=== PATIENT | male | born 1955 | race Caucasian/White ===

== ENCOUNTER 2023-12-27 18:17 | Inpatient (IN) | payer OTHER, SELFPAY ==
[2023-12-27 08:53] VITALS: BP 182/108
--- NOTE | 2023-12-27 09:56 | ED.GENMED ---
History of Present Illness
General
Chief Complaint: Skin Problem
Source: patient and family
Exam Limitations: none
Time Seen by Provider: 12/27/23 09:28
Nursing documentation reviewed up to this point in time: agreed with
Travel History
Have you had any contact with someone who has COVID-19?: No
Do you have any symptoms of coronavirus? Fever > 100 degrees, chills, cough, shortness of breath, sore throat, loss of taste or smell, muscle aches, or headache?: No
History of Present Illness
History of Present Illness:
68-year-old male past medical history of vascular disease and eczema presenting to the emergency department today with concerns of redness swelling and warmth of the right lower EXTR worsening over the past 5 days or so. Has had blisters that have
drained clear yellow fluid. Sand Screener Operator placed him on Levaquin a few days ago has been taking this took 3 total doses without any improvement. Claims to have had a fever yesterday. Denies chest pain shortness of breath history of blood clots.
Patient does take medication for ectopic dermatitis called Dupixent
Review of Systems
Review of Systems
Allergies reviewed?: Yes
All Other Systems: ROS reviewed and negative except as documented in HPI and ROS
Phy Exam
Physical Exam
Physical Exam:
GENERAL: Alert , in no apparent distress
EYE: pupils equal and reactive
NECK: Supple, no significant adenopathy.
ENT: o/p clr, mmm.
CARDIAC: Regular rate and rhythm .
LUNGS: Clear breath sounds bilaterally, no acute respiratory distress, no wheezes/rales/rhonchi
ABDOMEN: Soft, without focal tenderness, no r/g, no cvat
NEUROLOGICAL: Alert and oriented, no focal neuro deficits
SKIN: Significant redness swelling warmth to the right lower extremity from the hip all the way down to the foot patchy redness to the thigh diffuse deep redness throughout the extremity from the knee to the ankle with ruptured blisters no active
drainage. Mild tenderness palpation throughout the area. Normal distal pulses warm and dry, skin intact.
MUSCULOSKELETAL: No edema, well perfused.
PSYCH: Normal and appropriate interaction.
Course
Orders/Labs/Results
Orders:
Orders
12/27/23 09:58
Venous Doppler Lwr Ext Rt [US Periph Venous LOWER Ext RT] Urgent
Comment:
Reason For Exam: right leg swelling
12/27/23 10:08
Vancomycin [Vancocin] 2,000 mg 0.9% Sodium Chloride 500 ml [Nss] 500 ml IV NOW
12/27/23 10:43
Lower Ext Right w Contrast CT [CT Lower Ext W/iv Cont Rt] Urgent
Comment:
Reason For Exam: severe redness swelling
12/27/23 11:29
Urinalysis Reflex To Culture Urgent
Date Specimen was Collected: 12/27/23
Time Specimen was Collected: 10:56
12/27/23 12:27
CBC/With Diff [Complete Blood Count/With Diff] Urgent
CMP [Comprehensive Metabolic Panel] Urgent
CRP [C-Reactive Protein] Urgent
Lactic Acid Urgent
Blood Culture Q30M
DARRYL Source: Blood/Venous
Specimen Description:
12/27/23 12:35
Blood Culture Q30M
DARRYL Source: Blood/Venous
Specimen Description:
12/27/23 13:27
0.9% Sodium Chloride 1000 ml [Nss] 1,000 ml IV BOLUS
Abnormal Lab Results
12/27/23
12:27
WBC 18.3 H 10^3/uL
(4.8-10.8)
RBC 4.15 L 10^6/uL
(4.70-6.10)
Hgb 12.6 L g/dL
(13.0-18.0)
Hct 37.3 L %
(39.0-52.0)
Abs Immat Gran (auto) 0.4 H 10^3/uL
(0-0.05)
Absolute Neuts (auto) 15.5 H 10^3/uL
(1.4-6.5)
Absolute Monos (auto) 0.7 H 10^3/uL
(0.1-0.6)
Immature Gran % 2.1 H %
(0-0.5)
Neutrophils % 84.5 H %
(42.2-75.2)
Lymphocytes % 8.6 L %
(20.5-51.1)
Sodium 133 L mmol/L
(135-145)
Chloride 96 L mmol/L
(98-107)
Carbon Dioxide 31 H mmol/L
(22-30)
Glucose 189 H mg/dl
(70-99)
C-Reactive Protein 176.50 H mg/L
(0.0-10.00)
Albumin 3.4 L g/dl
(3.5-5.0)
12/27/23 12:27
12/27/23 12:27
Vital Signs
Initial and Last Documented VS:
Initial Vital Signs
Temp Pulse Resp BP Pulse Ox
97.9 F 85 18 182/108 100
12/27/23 08:53 12/27/23 08:53 12/27/23 08:53 12/27/23 08:53 12/27/23 08:53
Last Documented Vital Signs
Temp Pulse Resp BP Pulse Ox
97.9 F 92 18 141/83 99
12/27/23 08:53 12/27/23 12:45 12/27/23 12:45 12/27/23 12:45 12/27/23 12:45
MDM/Problems Addressed
MDM/Problems Addressed:
68-year-old male presenting to the emergency department today for concerns of redness swelling warmth of the entire right lower extremity worsening over the past 5 days or so. Has had a fever. Fever yesterday no fever here initially hypertensive.
Good distal pulse but has diffuse redness and swelling of the leg. Concern for infection blood culture sent patient started on vancomycin will be admitted for further monitoring and evaluation. Additionally patient had CT scan to ensure no
gas-forming component. Patient's white count is elevated CRP is elevated. Ultrasound no signs of DVT.
*Critical Care Note
Total Time (30-74mins, 75-104mins- exclusive of procedures): Not Applicable
ED Attending Note
-
Portions of this chart may have been created with voice recognition software.� Occasional wrong word or��sound alike� substitutions may have occurred due to the inherent limitations of voice recognition software.
Discharge Plan
Departure
Patient Disposition: Admit
Date of Disposition: 12/27/23
Time of Disposition: 13:31
Admit to: Med/Surg
Admit to doctor: Michael
Presentation/result/management discussed w/ accepting MD/DO: Hospitalist
Patient with high blood pressure during this ER visit?: No
Condition: Good
Covid-19: Not Applicable
Discharge Problem:
Cellulitis of leg, right
Prescriptions:
No Action
tramadol 50 mg Tablet
50 mg PO QIDPRN PRN (Reason: moderate pains)
tacrolimus 0.1 % Ointment
1 applic TOPICAL DAILY
ibuprofen [Advil] 200 mg Tablet
400 mg PO Q8HPRN PRN (Reason: mild pain)
levofloxacin 750 mg Tablet
750 mg PO DAILY
vitamin E 268 mg (400 unit) Capsule
268 mg PO BID
omega 8-uzp-chu-fish oil [Fish Oil] 1,000 mg (120 mg-180 mg) Capsule
1 cap PO DAILY
Referrals:
Rand Simms DO [Family Provider] -
Interventions
Interventions:
*Risk Screen - Suicide Last Done: 12/27/23 08:53
*General Assessment Last Done: 12/27/23 08:53
*Neglect/Abuse Screening Last Done: 12/27/23 08:53
*ED COVID-19 Vaccine History Last Done: 12/27/23 08:53
ED-Skin Assessment Last Done: 12/27/23 11:17
Discharge Date and Time
Print Language: MALTESE
[2023-12-27 11:00] VITALS: BMI 27.8
[2023-12-27 11:55] LABS: Urine Albumin Negative (Neg - Trace); Urine Bilirubin Negative (Negative); Urine Character Clear (Clear); Urine Color Yellow; Urine Glucose Negative (Negative); Urine Ketone Negative (Negative); Urine Leukocyte Negative (Negative); Urine Nitrite Negative (Negative); Urine Occult Blood Negative (Negative); Urine Specific Gravity 1.015 (<1.030); Urine Urobilinogen Negative (Neg - 1+); Urine pH 6.5 (5.0-9.0)
[2023-12-27] MEDS: VANCOCIN 540 MG IV (12:32)
[2023-12-27 12:35] LABS: % Basophils 0.5 % (0-2); % Eosinophils 0.6 % (0-6); % Immature Granulocytes 2.1 % (0-0.5); % Lymphocytes 8.6 % (20.5-51.1); % Monocytes 3.7 % (1.7-9.3); % Neutrophils 84.5 % (42.2-75.2); Absolute Basophils 0.1 10^3/uL (0-0.2); Absolute Eosinophils 0.1 10^3/uL (0-0.7); Absolute Immature Granulocytes 0.4 10^3/uL (0-0.05); Absolute Lymphocytes 1.6 10^3/uL (1.2-3.4); Absolute Monocytes 0.7 10^3/uL (0.1-0.6); Absolute Neutrophils 15.5 10^3/uL (1.4-6.5); Hematocrit 37.3 % (39.0-52.0); Hemoglobin 12.6 g/dL (13.0-18.0); Mean Corp Hgb Conc. 33.8 g/dL (33.0-37.0); Mean Corpuscular Hgb 30.4 pg (27.0-31.0); Mean Corpuscular Volume 89.9 fL (80.0-94.0); Mean Platelet Volume 8.9 fL (7.4-10.4); Nucleated Red Blood Cells % 0 % (-); Platelet Count 303 10^3/uL (130-400); Red Blood Cell Count 4.15 10^6/uL (4.70-6.10); Red Cell Dist. Width 13.2 % (11.5-14.5); White Blood Cell Count 18.3 10^3/uL (4.8-10.8)
[2023-12-27 12:45] VITALS: BP 141/83
[2023-12-27 12:50] LABS: ALT (SGPT) 49 U/L (0-50); AST (SGOT) 32 U/L (17-59); Albumin 3.4 g/dl (3.5-5.0); Alkaline Phosphatase 98 U/L (38-126); Blood Urea Nitrogen 18 mg/dl (9-20); Carbon Dioxide 31 mmol/L (22-30); Chloride 96 mmol/L (98-107); Estimated Creatinine Clearance 109 ml/min; Glucose 189 mg/dl (70-99); Potassium 4.4 mmol/L (3.5-5.1); Sodium 133 mmol/L (135-145); Total Bilirubin 0.4 mg/dl (0.2-1.3); Total Protein 6.6 g/dl (6.3-8.2); eGFR > 60.00
[2023-12-27] MEDS: TORADOL 15 MG IV (13:41)
[2023-12-27] MEDS: NSS 1000 IV (13:44)
[2023-12-27 17:15] VITALS: BP 137/71
--- NOTE | 2023-12-27 18:20 | HPS.HSE ---
Addendum entered and electronically signed by Perfecto Gonzalez MD 12/27/23 23:03:
Attending Addendum-
I performed a history and physical exam of the patient and discussed his management with the resident. I reviewed the resident's note and agree with the documented findings and plan of care. Kashif presents from derm office secondary to worsening
redness and swelling of RLE. Started on Levaquin by derm 3 days ago and has gotten progressively worse. Patients has long stanging wounds / ulcers on LE. States he has been febrile Tmax @ 101. Full 12 point ROS reviewed and negative except as
documented Exam- vitals reviewed in chart GEN-NAD heart RRR lungs clear abd soft LLE redness and warmth extending from thigh to foot. pulses +1 right malleolus ulcer present deep, pus present, LLE- ulcer present malleolus not red warm no sig
drainage Plan:
# Sepsis from RLE Cellulitis
- cont vancomycin
- CT RLE-There is diffuse edema throughout the right lower extremity, no discrete fluid collection or area of focal abscess or abnormal enhancement. No air within the soft tissues.
- RLE doppler- neg for DVT
- wound care
- podiatry consult
- check blood cx
- repeat CBC in am
Acute On Chronic B/L LE ulcers/wounds- POA
- cont vanco
- likely will need additional coverage based on cx results
- check wound cultures
- pods consult
- wound care
# Atopic Derm-
- hold immunosuppressive agents while infected
# Vascular disease-
- non specified
- obtain records from PCP/Derm
Time spent coordinating care, review of plan of care with resident, review of records, med rec, consults, notes, labs, rads, d/w nursing - 75 mins
Original Note:
Family Physician
-
Family Physician: Rand Simms (Dami Mayes)
Chief Complaint
-
Right leg pain and swelling
History of Present Illness
68-year-old male with a history of vascular disease [unspecified], atopic dermatitis, who presented to the ED with fever up to 103, redness, swelling, and warmth of right lower extremity x 6 days. Redness and swelling started mid to lower R calf
and progressively spread distally and superiorly. He spoke to his functional analyst 2 days ago who prescribed Levaquin 750 mg. Patient has taken 3 doses, most recent dose today with continued worsening of symptoms. He went in to see his functional analyst
today who then sent him to the ED. Pain is 6 out of 10 while sitting and 10 out of 10 when he stands. He has taken Tylenol and Advil alternatively or every 4-5 hours to help with fever and pain. He takes tramadol chronically for back pain and took 1
today for pain relief. He has a long history of vascular disease in his lower extremities, with chronic wounds on his feet and legs bilaterally. He describes eczema flares on his feet and legs for which he takes Dupixent every 2 weeks and applies
tacrolimus ointment daily. He does not follow vascular surgery.
No recent illness or sick contacts. No known trauma, puncture or bites.
Pt was given IVF bolus and Vancomycin bolus in ED
Medical History
Past Medical History
Past Medical History: Reports Other (atopic dermatitis, Vascular disease)
Past Surgical History: Reports Other (skin cancer excisions)
Social History
Tobacco: Former Smoker (25 pk year, quit 15 years ago)
Alcohol: None
Drug: None
Personal: Partner
Living: With Family
Employment: Employed
Family History
Family History: Cancer (leukemia, throat cancer)
Allergies / Home Medications
Allergies
Allergy/AdvReac Type Severity Reaction Status Date / Time
cephalexin [From Keflex] Allergy Rash with Verified 12/27/23 10:08
prolonged
courses,
tolerates
penicillins
Home Medications
ibuprofen 200 mg tablet (Advil) 400 mg PO Q8HPRN PRN mild pain 12/27/23
levofloxacin 750 mg tablet 750 mg PO DAILY Infection 12/27/23
omega 4-aau-adh-fish oil 1,000 mg (120 mg-180 mg) capsule (Fish Oil) 1 cap PO DAILY Supplement 12/27/23
tacrolimus 0.1 % topical ointment 1 applic topical DAILY sores on feet 12/27/23
tramadol 50 mg tablet 50 mg PO QIDPRN PRN moderate pains 12/27/23
vitamin E 268 mg (400 unit) capsule 268 mg PO BID Supplement 12/27/23
Dupilumab 300mg SQ Q2W Atopic dermatitis
Allergies reflects when Allergies were last updated in [facility].
Home Medications with original date entered in [facility]
Allergy/Medication List:
Allergies
Allergy/AdvReac Type Severity Reaction Status Date / Time
cephalexin [From Keflex] Allergy Rash with Verified 12/27/23 10:08
prolonged
courses,
tolerates
penicillins
Review of Systems
-
History Source: Patient and Family
A 12 point ROS was completed and negative except as noted: Yes
Constitutional: Reports Fever
Respiratory: Denies Cough or Trouble Breathing
Cardiac: Denies Chest Pain or Palpitations
Abdomen/GI: Reports Nausea; Denies Abdominal Pain or Vomiting
: Reports No Symptoms
Musculoskeletal: Reports Edema (RLE Edema 3+) and Other (chronic wounds on bilateral feet)
Skin: Reports Rash (Pain, swelling and redness in RLE)
Neurological: Reports Headache
Physical Exam
Vital Signs
Vital Signs
Temp Pulse Resp BP Pulse Ox
97.9 F 84 18 137/71 97
12/27/23 08:53 12/27/23 17:15 12/27/23 17:15 12/27/23 17:15 12/27/23 17:15
Physical Exam
General: Well Developed, Well Nourished, No Apparent Distress, Fever and Other; No Respiratory Distress
HEENT: NormoCephalic, Anicteric, Moist mucous membranes and Atraumatic
Respiratory: Clear and Non Labored Respirations; No Accessory Resp Muscle Use
Cardiac: S1/S2 and Regular Rhythm; No Murmur or Rub
GI: Soft, Non Tender and Non Distended; No Organomegaly
Musculoskeletal: No Clubbing, No Cyanosis and Edema, Right Lower Extremity (3+ pitting edema up to mid thigh)
Skin: Warm (R>L), Rash (Diffuse erythema of right lower extremity, with skin blistering and sloughing, scattered pustules, clear yellow drainage) and Ulcers; No Dry (Yellow clear discharge from Right leg) or Jaundice
Neuro: Awake, Alert and Oriented
Psych: Calm
Laboratory Results
-
12/27/23 12:27
12/27/23 12:
Laboratory Results
Lactic Acid 1.0 mmol/L (0.7-2.0) 12/27/23 12:
Total Bilirubin 0.4 mg/dl (0.2-1.3) 12/27/23 12:
AST 32 U/L (17-59) 12/27/23 12:27
ALT 49 U/L (0-50) 12/27/23 12:
Alkaline Phosphatase 98 U/L (38-126) 12/27/23 12:27
Impression/Plan
-
ASSESSMENT: 68-year-old male with a history of atopic dermatitis on Dupixent and Tacrolimus, and vascular disease who presents with right lower extremity cellulitis.
Impression:
Right lower extremity cellulitis
Leukocytosis
-
Conditions ASSOCIATE PROFESSOR PHYSICIAN:
Atopic dermatitis
Vascular disease
Chronic bilateral LE ulcers
PLAN:
# Right lower extremity cellulitis
Levaquin, 3 doses with worsening symptoms.
LE Venous US: no DVT.
CT of RLE: diffuse subcutaneous edema throughout the right lower extremity no subcutaneous air collection
- Vancomycin IV
- Wound Cx
- Blood Cx
- Check CPK
- Wound care
- Non-febrile upon admission, monitor temperature curve
# Leukocytosis:
2/2 cellulitis
- Trend WBC
# Atopic dermatitis:
Most recent dose of Dupixent 12/19
-Hold Dupixent
-Hold tacrolimus
# Chronic bilateral LE ulcers:
-Podiatry consult
# Vascular disease
Specific diagnosis unclear. Evaluated many years ago. Patient is not followed by vascular surgery
[2023-12-27 20:20] VITALS: BMI 27.8
[2023-12-27 20:21] VITALS: BP 154/97
[2023-12-27 20:26] VITALS: BP 141/75
[2023-12-27 21:15] LABS: Creatine Phosphokinase 63 U/L (55-170)
--- NOTE | 2023-12-27 21:47 | PHA.VAN.IN ---
Assessment
- Assessment
Renal Function: Unknown baseline
Concomitant Antimicrobials: NONE
- Previous Dosing Experience
Previous Regimen: NONE
AUC Dosing Plan
- Dosing Variables
Dosing Weight (kg): 90.3
Dosing CrCl (ml/min): 100
Vd coefficient (L/kg): 0.7
- Empiric Dosing
Initial / Loading Dose: 2GM
Maintenance Regimen: 1250MG IV Q12H
Estimated AUC (mcg*h/mL): 482
Estimated Peak (mcg*h/mL): 30.4
Estimated Trough (mcg/ml): 12.2
Estimated Half Life (H): 7.9
Pharmacokinetics Vancomycin I
- -
Patient Age: 68
Patient Sex: Male
Vancomycin Day #: 1
Indication: Skin And Soft Tissue (RLE CELLULITIS)
Requesting Provider: JESÚS
Pertinent Antimicrobial Allergies:
Allergies
cephalexin [From Keflex] Allergy (Verified 12/27/23 10:08)
Rash with prolonged courses, tolerates penicillins
Height / Weight:
Height 5 ft 11 in
Actual Weight 90.31 kg
- Vital Signs / Lab Results
Temp Pulse Resp BP Pulse Ox
98.0 F 81 18 141/75 96
12/27/23 20:21 12/27/23 20:26 12/27/23 20:26 12/27/23 20:26 12/27/23 20:26
Lab Results - Hematology
12/27/23
12:27
WBC 18.3 H
Lab Results - Chemistry
12/27/23
12:27
BUN 18
Creatinine 0.7
Estimated Creat Clear 109
Albumin 3.4 L
12/27/23
12:27
Lactic Acid 1.0
Lab Results - Urine
12/27/23
11:29
Urine Nitrite (Reflex) Negative
Leukocyte Esterase Rfl Negative
[2023-12-27] MEDS: ULTRAM 50 MG PO (22:37)
[2023-12-27] MEDS: LOVENOX 40 MG SC (22:47)
[2023-12-27 23:15] VITALS: BP 149/82
[2023-12-28 05:45] LABS: Hematocrit 35.9 % (39.0-52.0); Hemoglobin 12.2 g/dL (13.0-18.0); Mean Corpuscular Hgb 30.4 pg (27.0-31.0); Mean Corpuscular Volume 89.5 fL (80.0-94.0); Mean Platelet Volume 8.9 fL (7.4-10.4); Platelet Count 294 10^3/uL (130-400); Red Blood Cell Count 4.01 10^6/uL (4.70-6.10); Red Cell Dist. Width 13.2 % (11.5-14.5); White Blood Cell Count 17.2 10^3/uL (4.8-10.8)
[2023-12-28 06:00] VITALS: BMI 27.7
[2023-12-28 06:11] LABS: Blood Urea Nitrogen 14 mg/dl (9-20); Carbon Dioxide 30 mmol/L (22-30); Chloride 99 mmol/L (98-107); Estimated Creatinine Clearance 109 ml/min; Glucose 150 mg/dl (70-99); Potassium 4.5 mmol/L (3.5-5.1); Sodium 136 mmol/L (135-145); eGFR > 60.00
[2023-12-28] MEDS: VANCOCIN 275 MG IV ×2 (06:23→17:01)
[2023-12-28] MEDS: FLUSH (NSS) 2 FLUSH IV (06:24)
[2023-12-28] MEDS: ULTRAM 50 MG PO ×2 (06:31→12:38)
--- NOTE | 2023-12-28 06:43 | W.PN.HOSP.TC ---
Addendum entered and electronically signed by Perfecto Gonzalez MD 12/28/23 23:00:
Attending Addendum-
I saw and evaluated the patient. I reviewed the resident�s note and agree with findings and plan as documented in the resident�s note. redness warmth and pain much improved. Full 12 point ROS reviewed and negative except as documented Exam- vitals
reviewed in chart GEN-NAD heart RRR lungs clear abd soft LLE less redness and warmth thigh to foot. pulses +1 right malleolus ulcer present deep, pus present, LLE- ulcer present malleolus not red warm no sig drainage Plan:
# Sepsis from RLE Cellulitis
- resolving
- cont vancomycin
- RLE doppler- neg for DVT
- cont wound care
- podiatry consult
- blood cx NGTD
- wound cx- NGTD
- repeat CBC in am
# Leukocytosis
- resolving
- repeat CBC in am
# Hyponatremia-
- resolved s/p IVF
- repeat BMP in am
# Chronic B/L LE ulcers/wounds- POA
- check wound cultures- NGTD GMS neg
- pods consult
- cont wound care
# Atopic Derm-
- hold immunosuppressive agents while infected
# Vascular disease-
- non specified
- obtain records from PCP/Derm
Dispo- DC home in AM on PO abx if able
Time spent coordinating care, review of plan of care with resident, review of records, med rec, consults, notes, labs, rads, d/w nursing - 55 mins
Original Note:
Today's Communication/Plan
-
- Continue IV vancomycin
Assessment / Plan
Assessment / Plan
ASSESSMENT: 68-year-old male with a history of atopic dermatitis on Dupixent and Tacrolimus, and vascular disease who presents with right lower extremity cellulitis.
Impression:
Sepsis 2/2 right lower extremity cellulitis
Acute on chronic LE wounds/ulcers
Hyperglycemia
Conditions AUTOTRANSFUSIONIST:
Atopic dermatitis
Vascular disease
#Sepsis 2/2 right lower extremity cellulitis
LE Venous US: neg for DVT.
CT of RLE: diffuse subcutaneous edema throughout the right lower extremity no subcutaneous air collection
WBC slow downtrend, 17.2. Significant improvement of symptoms and physical exam,
- Continue Vancomycin IV
- Wound Cx, Blood Cxs pending
- Wound care
- monitor temperature curve
- podiatry consult
Acute on chronic bilateral LE wounds
- Podiatry consult
- wound care
- wound cx
- Await cx results for abx coverage
Hyperglycemia:
Likely stress hyperglycemia, no prior diagnosis of diabetes/hyperglycemia
- ISS low resistance
- HbA1c in AM
Atopic dermatitis
- Hold immunosuppressives while infected
Vascular disease:
- Obtain records from PCP/derm
DVT ppx: Lovenox
Code status: Full Code
POA: Lilli Kenney ([phone])
Anticipated Discharge: 24 - 48 hours
Subjective/Interval History
-
Date of Service: December 28, 2023
Patient reports significant improvement of symptoms
Objective Data
-
Labs:
Laboratory Results
12/28/23
05:31
WBC 17.2 H
Hgb 12.2 L
Hct 35.9 L
Plt Count 294
Sodium 136
Potassium 4.5
Chloride 99
Carbon Dioxide 30
BUN 14
Creatinine 0.7
Glucose 150 H
Calcium 9.0
Vital Signs:
Vital Signs
Temp Pulse Resp BP Pulse Ox
98.2 F 91 18 149/82 96
12/27/23 23:15 12/27/23 23:15 12/27/23 23:15 12/27/23 23:15 12/27/23 23:15
I&O
12/26/23 12/27/23 12/28/23
06:59 06:59 06:59
Intake Total 003 / 755
Balance 755 / 755
Review of Systems
-
History Source: Patient
Constitutional: Reports Fever and Other (Normal appetite)
Respiratory: Reports No Symptoms; Denies Cough or Trouble Breathing
Cardiac: Reports No Symptoms; Denies Chest Pain, Palpitations or Syncope
Abdomen/GI: Reports No Symptoms; Denies Abdominal Pain, Nausea, Diarrhea or Constipated
Genitourinary: Reports No Symptoms; Denies Dysuria, Frequency or Difficulty Voiding
Skin: Reports Rash and Other (Pain)
Neuro: Reports Headache
Physical Exam
-
General: Well Developed, Well Nourished and Comfortable
HEENT: Normocephalic, Atraumatic, Moist Mucous Membranes and Anicteric
Respiratory: Clear to Auscultation and Non Labored Respirations; Negative Wheezes, Rales, Rhonchi, Crackles or Accessory Resp Muscle Use
Cardiac: Regular Rhythm and S1/S2; Negative Murmur, Rub or Calf Tenderness
GI: Soft, Nontender and Nondistended
Musculoskeletal: No Clubbing, No Cyanosis and Edema, Right Lower Extrem (Right Lower Extremity (3+ pitting edema up to mid thigh))
Skin: Warm (R>L), Rash (Diffuse erythema of right lower extremity, with skin blistering and sloughing, scattered pustules, clear yellow drainage) and Ulcers; Negative Dry (Minimal yellow clear discharge from Right leg)
Neuro: Awake, Alert and Oriented
Psych: Calm
[2023-12-28 07:00] VITALS: BP 135/84
[2023-12-28 08:17] LABS: Glucose - Point of Care 171 mg/dl (70-99)
[2023-12-28] MEDS: NOVOLOG FLEXPEN-LOW RESISTANCE 1 UNITS SC ×2 (08:17→12:39)
--- NOTE | 2023-12-28 08:47 | PHA.VAN.FU ---
Vancomycin Assessment / Plan
- Assessment
Renal Function: Stable
WBC's are: Trending Down
In the past 24 hrs, patient has been: Afebrile
- Dosing Plan
Continue: Vanc 1250mg Q12H
- Monitoring Plan
No level(s) ordered at this time: consider levels in next few days
- Follow Up
Pharmacy will continue to follow.
Vancomycin Follow UP
- -
Patient Age: 68
Patient Sex: Male
Vancomycin Day #: 2
Indication: Skin And Soft Tissue
Requesting Provider: Tr Mendoza
Pertinent Antimicrobial Allergies:
cephalexin - Rash with prolonged courses, tolerates penicillins
Height / Weight:
Height 5 ft 11 in
Actual Weight 90.083 kg
- Vital Signs / Lab Results
Temp Pulse Resp BP Pulse Ox
98.6 F 90 17 135/84 98
12/28/23 07:00 12/28/23 07:00 12/28/23 07:00 12/28/23 07:00 12/28/23 07:00
Lab Results - Hematology
12/27/23 12/28/23
12:27 05:31
WBC 18.3 H 17.2 H
Lab Results - Chemistry
12/27/23 12/28/23
12:27 05:31
BUN 18 14
Creatinine 0.7 0.7
Estimated Creat Clear 109 109
Albumin 3.4 L
12/27/23
12:27
Lactic Acid 1.0
Lab Results - Urine
12/27/23
11:29
Urine Nitrite (Reflex) Negative
Leukocyte Esterase Rfl Negative
--- NOTE | 2023-12-28 09:33 | WOUNDNOTE ---
[facility] RN note: Patient admitted with RLE cellulitis
See H&P for complete history.
PMH: Vascular disease, skin cancer, arthritis, chronic eczema
Wound Location and type/assessment: Patient admitted with swelling, erythema from foot to thigh. Rough, slightly opened areas and thickened skin over skin and feet. The right lateral ankle has chronic full thickness irregular appearing wound with
slough and serous drainage. Patient states he has had this wound for many years and has been to [facility] in the past. He now cleans and covers this area with gauze a few times daily. Patient reports he follows with bleaching supervisor and is aware of
his venous disease. He explained that he has had biopsies which have confirmed chronic eczema of his legs. He wears 30-40 mmHg compression bilaterally and applies Eucerin daily. He describes being on his feet most of the day and he is aware that he
should elevate legs more often. He also reports having venous and arterial studies at [facility] years ago. He has bilateral audible pulses with doppler. Sacrum and heels intact.
Appetite: Good
Pressure redistribution devices in place: Versa Care air, turns easily in bed
Plan: Drainage of legs is minimal today. Legs and wound soaked with Vashe moistened gauze for 5 min and Eucerin applied to right leg. ABD applied to protect healing skin and GABI bandage applied. Patient preferred to leave left leg without GABI.
Right ankle wound cleaned with Vashe and silicone foam applied.
Will confirm orders with hospitalist and update nurse. Updated care plan and will follow as needed.
Note to case management of equipment requested for discharge:
--- NOTE | 2023-12-28 10:12 | WOUNDNOTE ---
RIGHT LATERAL ANKLE
--- NOTE | 2023-12-28 10:12 | WOUNDNOTE ---
LEFT LATERAL ANKLE
[2023-12-28 11:57] LABS: Glucose - Point of Care 194 mg/dl (70-99)
--- NOTE | 2023-12-28 14:21 | CM ---
Reviewed chart, met with patent to obtain information for assessment. Patient's son was at bedside. Patient stated that he lives with his son in a one floor apartment with three steps to enter. He described himself as independent with his ADLs,
Personal care, dressing and bathing. He ambulates without device. 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 He drives and can transport himself to his appointments and run errands independently.
Patient has a Glucometer but denied any other DME.
He has never had VN services.
He has not been to a SNF.
Patient has a prescription plan and uses [facility] in [place] for all of his medications.
Patient's PCP is, Rand Simms.
Patient stated that he has a significant other who is extremely supportive and his son with whom he lives is extremely supportive and available to help patient with whatever he may need.
Will watch for ABX needs.
Plan: Case management will continue to follow and assist with discharge planning. Home when stable.
[2023-12-28 15:35] VITALS: BP 152/84
[2023-12-28 16:20] LABS: Glucose - Point of Care 85 mg/dl (70-99)
[2023-12-28] MEDS: NOVOLOG FLEXPEN-LOW RESISTANCE SC (16:47)
[2023-12-28] MEDS: LOVENOX 40 MG SC (17:03)
[2023-12-28] MEDS: TYLENOL 650 MG PO (17:08)
--- NOTE | 2023-12-28 18:43 | PTCARENOTE ---
Podiatry suggested x-ray be obtained tomorrow, RN said she would pass off this message to oncoming RN tomorrow for day team MD's.
[2023-12-28 21:45] LABS: Glucose - Point of Care 116 mg/dl (70-99)
[2023-12-28 23:02] VITALS: BP 143/85
[2023-12-29] MEDS: ULTRAM 50 MG PO ×2 (01:09→07:27)
[2023-12-29] MEDS: VANCOCIN 275 MG IV ×2 (06:12→17:28)
[2023-12-29] MEDS: FLUSH (NSS) 2 FLUSH IV (06:13)
[2023-12-29 06:19] LABS: Hematocrit 36.6 % (39.0-52.0); Hemoglobin 12.6 g/dL (13.0-18.0); Mean Corp Hgb Conc. 34.4 g/dL (33.0-37.0); Mean Corpuscular Hgb 30.4 pg (27.0-31.0); Mean Corpuscular Volume 88.4 fL (80.0-94.0); Mean Platelet Volume 8.7 fL (7.4-10.4); Platelet Count 342 10^3/uL (130-400); Red Blood Cell Count 4.14 10^6/uL (4.70-6.10); Red Cell Dist. Width 13.3 % (11.5-14.5); White Blood Cell Count 16.8 10^3/uL (4.8-10.8)
[2023-12-29 06:46] LABS: Blood Urea Nitrogen 18 mg/dl (9-20); Carbon Dioxide 28 mmol/L (22-30); Chloride 100 mmol/L (98-107); Estimated Creatinine Clearance 109 ml/min; Glucose 144 mg/dl (70-99); Potassium 4.3 mmol/L (3.5-5.1); Sodium 137 mmol/L (135-145); eGFR > 60.00
[2023-12-29 07:29] VITALS: BP 143/90
[2023-12-29 07:39] LABS: Glucose - Point of Care 201 mg/dl (70-99)
[2023-12-29] MEDS: NOVOLOG FLEXPEN-LOW RESISTANCE 2 UNITS SC (07:51)
[2023-12-29 08:31] LABS: Glycohemoglobin (HgbA1c) 6.4 % (4.0-5.6)
--- NOTE | 2023-12-29 09:00 | PHA.VAN.FU ---
Vancomycin Assessment / Plan
- Assessment
Renal Function: Stable
WBC's are: Trending Down
In the past 24 hrs, patient has been: Afebrile
Concomitant Antimicrobials: none
- Dosing Plan
Continue: vancomycin 1250 mg q12h - first dose 12/27 06
- Monitoring Plan
Peak Level: 12/29/23 2100 - after 4th maintenance dose
Trough Level: 12/30/23 0530
- Follow Up
Pharmacy will continue to follow.
Vancomycin Follow UP
- -
Patient Age: 68
Patient Sex: Male
Vancomycin Day #: 3
Indication: Skin And Soft Tissue
Requesting Provider: Tr Mendoza
Pertinent Antimicrobial Allergies:
cephalexin - Rash with prolonged courses, tolerates penicillins
Height / Weight:
Height 5 ft 11 in
Actual Weight 90.083 kg
- Vital Signs / Lab Results
Temp Pulse Resp BP Pulse Ox
98.5 F 89 16 143/90 98
12/29/23 07:29 12/29/23 07:29 12/29/23 07:29 12/29/23 07:29 12/29/23 07:29
Lab Results - Hematology
12/27/23 12/28/23 12/29/23
12:27 05:31 05:58
WBC 18.3 H 17.2 H 16.8 H
Lab Results - Chemistry
12/27/23 12/28/23 12/29/23
12:27 05:31 05:58
BUN 18 14 18
Creatinine 0.7 0.7 0.7
Estimated Creat Clear 109 109 109
Albumin 3.4 L
12/27/23
12:27
Lactic Acid 1.0
Microbiology Results
12/27/23 12:35 Blood Culture - Preliminary
Blood/Venous No Growth in 24 hours- Final report to follow
12/27/23 12:27 Blood Culture - Preliminary
Blood/Venous No Growth in 24 hours- Final report to follow
12/27/23 18:43 Wound Culture - Preliminary
Leg - Right No growth
Gram Stain - Preliminary
[2023-12-29] MEDS: TYLENOL 650 MG PO (11:59)
[2023-12-29 12:52] LABS: Glucose - Point of Care 116 mg/dl (70-99)
--- NOTE | 2023-12-29 13:01 | CON.MD ---
Consultation - Medical
-
Podiatry consult for 68 year old male admitted with right LE cellulitis. Injected Dupixent the day before for Eczema and noticed sudden onset of swelling and redness in the right leg. Called his sanforizer who prescribed Levaquin, but symptoms
continued to worsen and was sent to the ED. He states he has had issues with irritation from injections in the past and for that reason no longer injects into either thigh. Patient states that since admission, pain, redness and swelling have
significantly reduced. he does not follow a vascular surgeon, but states he has chronic wounds on bilateral feet and lower legs. Seen today at bedside with his son present who is a Physical Therapist.
On admission WBC elevated, CT negative for abscess or gas in tissue. Currently afebrile with WBC 16.8 down from 18. Pedal pulses present bilaterally with erythema from forefoot to midthigh, but receding from line drawn marking ascending cellulitis.
Open lesion noted lateral maleolus 1 cm with stable edges, fibrotic base and serous drainage. Similar wound noted dorsal foot 1x2cm with stable edges, fibrotic base and serous drainage. Neither wound probes to bone or to adjacent compartments
Impression/Plan
-Right LE cellulitis
Possibly caused by a reaction to Dupixent injection
CT of right LE with no gas in tissue or abscess
Appearance improving with IV antibiotic therapy and local wound care as per patient and son
Discussed following up with sanforizer THA upon discharge
Has wound care regimen and states that current ulcerations are chronic in nature
Agree with discharge on oral antibiotic therapy if WBC continues to trend lower
No surgical intervention recommended at this time
-Atopic Dermatitis
-Non specific LE vascular disease
Evaluated years ago and does not follow up with a vascular surgeon.
[2023-12-29] MEDS: NOVOLOG FLEXPEN-LOW RESISTANCE SC ×2 (13:02→17:33)
[2023-12-29 15:11] VITALS: BP 130/77
--- NOTE | 2023-12-29 16:30 | W.DCSUMMARY ---
Addendum entered and electronically signed by Perfecto Gonzalez MD 12/29/23 23:17:
Attending Addendum:
Read reviewed and agree. See same day progress note for additional details.
Rashaad Gonzalez MD
Original Note:
Documented by User: Yolanda Mendoza MD, Resident 12/29/23 17:18
Discharge Summary
Discharge Data
Date of Admission: 12/27/23
Date of Discharge: 12/29/23
-
Pending Results: No
Hospital Course
68-year-old male with a history of unspecified vascular disease, atopic dermatitis, who presented to [facility] ED complaining of fever up to 103 degrees redness swelling and warmth of right lower extremity x 6 days. She has taken 3 doses
of Levaquin at home, prescribed by his extra gang supervisor. He was diagnosed with right lower extremity cellulitis. CT of right lower extremity showed diffuse subcutaneous edema throughout the right lower extremity no subcutaneous air collection, lower
extremity venous ultrasound showed no DVT. His immunosuppressive medications were held while infection was treated. he was started on IV vancomycin, and patient reported symptom improvement, with commensurate improvement on physical exam. Podiatry
and wound care consults were involved in acute care of cellulitis as well as chronic lower extremity ulcers. Blood and wound cultures showed no growth at 48 hours. Hyponatremia was resolved with IV fluids. Patient was found to be hypoglycemic,
HbA1c 6.4.
He is being discharged on oral doxycycline to complete 10-day course. Strongly encourage follow-up with PCP Dr. Rand Simms with [facility]. Strongly encourage follow-up with extra gang supervisor Dr. Samuel with [facility]. Follow up
CBC within one week of discharge.
Discharge Plan
-
Patient Disposition: Home (Routine Discharge)
Discharge Diagnosis/Procedures: Right Lower Extremity Cellulitis
Diet: No restrictions
Activity: As tolerated
Driving Restrictions: As prior to admission
Blood Work: Follow up CBC within one week
Activity Restrictions/Additional Instructions:
Wound Care Instructions Right lower leg wounds- Clean with Vashe moistened gauze for 5 min. Apply Eucerin and ABD to protect healing skin.
Right Ankle- Clean with Vashe moistened gauze for 5 minutes. Apply silicone border foam and change Q 48 hours. If patient does not prefer silicone foam dressing, he may continue to use gauze over wound like he has done in the past.
GABI bandage to right leg daily
Follow up with Ecd
Follow up at wound care center call for an appointment.
Follow up with Ecd within one week of discharge: Dr. Samuel, [facility]
Follow-up with PCP Dr. Rand Simms, [facility] within 2 weeks
Referrals:
Rand Simms, DO [Family Provider] -
Prescriptions:
New
acetaminophen 325 mg Tablet
650 mg PO Q6HPRN PRN (Reason: mild pain/ fever>100.5F) Qty: 30 0RF
doxycycline hyclate 100 mg tablet
100 mg PO BID Qty: 16 0RF
Continued
tramadol 50 mg Tablet
50 mg PO QIDPRN PRN (Reason: moderate pains)
ibuprofen [Advil] 200 mg Tablet
400 mg PO Q8HPRN PRN (Reason: mild pain)
vitamin E 268 mg (400 unit) Capsule
268 mg PO BID
omega 0-edd-bep-fish oil [Fish Oil] 1,000 mg (120 mg-180 mg) Capsule
1 cap PO DAILY
Discontinued
levofloxacin 750 mg Tablet
750 mg PO DAILY
No Action
tacrolimus 0.1 % Ointment
1 applic TOPICAL DAILY
Discharge Orders:
Discharge Patient (As Directed); Ordered 12/29/23
Ordered By: Yolanda Mendoza
Discharge Date and Time
Discharge Date/Time: 12/29/23 20:03
Print Language: ICELANDIC

Documented by User: Perfecto Gonzalez MD 12/29/23 23:13
Discharge Summary
Discharge Data
Date of Admission: 12/27/23
Date of Discharge: 12/29/23
Discharge Plan
-
Patient Disposition: Home (Routine Discharge)
Discharge Diagnosis/Procedures: Right Lower Extremity Cellulitis
Diet: No restrictions
Activity: As tolerated
Driving Restrictions: As prior to admission
Blood Work: Follow up CBC within one week
Activity Restrictions/Additional Instructions:
Wound Care Instructions Right lower leg wounds- Clean with Vashe moistened gauze for 5 min. Apply Eucerin and ABD to protect healing skin.
Right Ankle- Clean with Vashe moistened gauze for 5 minutes. Apply silicone border foam and change Q 48 hours. If patient does not prefer silicone foam dressing, he may continue to use gauze over wound like he has done in the past.
GABI bandage to right leg daily
Follow up with Ecd
Follow up at wound care center call for an appointment.
Follow up with Ecd within one week of discharge: Dr. Samuel, [facility]
Follow-up with PCP Dr. Rand Simms, [facility] within 2 weeks
Referrals:
Rand Simms, DO [Family Provider] -
Prescriptions:
New
acetaminophen 325 mg Tablet
650 mg PO Q6HPRN PRN (Reason: mild pain/ fever>100.5F) Qty: 30 0RF
doxycycline hyclate 100 mg tablet
100 mg PO BID Qty: 16 0RF
Continued
tramadol 50 mg Tablet
50 mg PO QIDPRN PRN (Reason: moderate pains)
ibuprofen [Advil] 200 mg Tablet
400 mg PO Q8HPRN PRN (Reason: mild pain)
vitamin E 268 mg (400 unit) Capsule
268 mg PO BID
omega 6-mpi-ntg-fish oil [Fish Oil] 1,000 mg (120 mg-180 mg) Capsule
1 cap PO DAILY
Discontinued
levofloxacin 750 mg Tablet
750 mg PO DAILY
No Action
tacrolimus 0.1 % Ointment
1 applic TOPICAL DAILY
Discharge Orders:
Discharge Patient (As Directed); Ordered 12/29/23
Ordered By: Yolanda Mendoza
Discharge Date and Time
Discharge Date/Time: 12/29/23 20:03
Print Language: ICELANDIC
--- NOTE | 2023-12-29 17:11 | W.DS.TRANS ---
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
-
Discharge Instructions:
Discharge Diagnosis/Procedures Right Lower Extremity Cellulitis
Diet No restrictions
Activity As tolerated
Driving Restrictions As prior to admission
Blood Work Follow up CBC within one week
Instructions:
Follow up with Hims Manager within one week of discharge: Dr. Samuel, [facility]
Follow-up with PCP Dr. Rand Simms, [facility]
Follow up CBC within one week of discharge
Wound Care Instructions Right lower leg wounds- Clean with Vashe moistened gauze for 5 min. Apply Eucerin and ABD to protect healing skin.
Right Ankle- Clean with Vashe moistened gauze for 5 minutes. Apply silicone border foam and change Q 48 hours. If patient does not prefer silicone foam dressing, he may continue to use gauze over wound like he has done in the past.
GABI bandage to right leg daily
Follow up with Hims Manager
Stand-Alone Forms:
Changes to Home Medications: Yes
Discharge Medications:
DC Medications w/original date entered in [facility]
ibuprofen 200 mg tablet (Advil) 400 mg PO Q8HPRN PRN mild pain 12/27/23
levofloxacin 750 mg tablet 750 mg PO DAILY Infection 12/27/23
omega 7-bqz-ezc-fish oil 1,000 mg (120 mg-180 mg) capsule (Fish Oil) 1 cap PO DAILY Supplement 12/27/23
tacrolimus 0.1 % topical ointment 1 applic topical DAILY sores on feet 12/27/23
tramadol 50 mg tablet 50 mg PO QIDPRN PRN moderate pains 12/27/23
vitamin E 268 mg (400 unit) capsule 268 mg PO BID Supplement 12/27/23
Home Medication Changes
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
STOP levofloxacin 750 mg tablet 750 mg PO DAILY Infection
START doxycycline hyclate 100 mg tablet 100 mg PO BID, starting 12/30/2023 for 8 days
Pending Results: No
[2023-12-29] MEDS: LOVENOX SC (17:25)
[2023-12-29 17:33] LABS: Glucose - Point of Care 149 mg/dl (70-99)
--- NOTE | 2023-12-29 18:50 | PTCARENOTE ---
Pt receiving last bag of IV vanco. RN relayed to oncoming nurse that IV team will have to be paged for pt to have midline removed once bag of vanco is complete. RN handed patient d/c instructions/medication paperwork. Pt's significant other is at
bedside ready to provide him a ride home.
[2023-12-29 19:39] VITALS: BP 146/89
--- NOTE | 2023-12-29 20:11 | PTCARENOTE ---
Pt discharged home. Midline removed by TRAINING PROGRAM MANAGER. Pt transported from unit in wheelchair.
--- NOTE | 2023-12-29 21:58 | W.PN.HOSP.TC ---
Addendum entered and electronically signed by Perfecto Gonzalez MD 12/29/23 23:16:
Attending Addendum-
I saw and evaluated the patient. I reviewed the resident�s note and agree with findings and plan as documented in the resident�s note. feels improved, wants to go home. afebrile in last 24 hours Full 12 point ROS reviewed and negative except as
documented Exam- vitals reviewed in chart GEN-NAD heart RRR lungs clear abd soft LLE less redness and warmth thigh to foot. pulses +1 right malleolus ulcer present, LLE- ulcer present malleolus not red warm no sig drainage Plan:
# Sepsis from RLE Cellulitis
- resolving
- vancomycin transtion to PO ABX with MRSA coverage
- RLE doppler- neg for DVT
- cont wound care
- podiatry consult appreciated
- blood cx NGTD
- wound cx- NGTD
- repeat CBC as OP
# Leukocytosis
- resolving
- repeat CBC as OP
# Hyponatremia-
- resolved s/p IVF
# Chronic B/L LE ulcers/wounds- POA
- check wound cultures- NGTD GMS neg
- pods consult appreciated
- cont wound care as OP
# Atopic Derm-
- hold immunosuppressive agents while infected
# Vascular disease-
- non specified
Dispo- DC home on PO abx if able
Time spent coordinating care, review of plan of care with resident, review of records, DC planning, transition of care, med rec, consults, notes, labs, rads, d/w nursing and son - 36 mins
Original Note:
Today's Communication/Plan
-
Discharge planning
Assessment / Plan
Assessment / Plan
ASSESSMENT: 68-year-old male with a history of atopic dermatitis on Dupixent and Tacrolimus, and vascular disease who presents with right lower extremity cellulitis.
Impression:
Sepsis 2/2 right lower extremity cellulitis
Acute on chronic LE wounds/ulcers
Hyperglycemia
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
Atopic dermatitis
Vascular disease
#Sepsis 2/2 right lower extremity cellulitis
LE Venous US: neg for DVT.
CT of RLE: diffuse subcutaneous edema throughout the right lower extremity no subcutaneous air collection
WBC slow downtrend, 16.8. Significant improvement of symptoms and physical exam,
- Continue Vancomycin IV, convert to PO DOxycycline on DC
- Wound Cx, Blood Cxs no growth
- Wound care
- monitor temperature curve
- podiatry consult
Acute on chronic bilateral LE wounds
- Podiatry consult
- wound care
- wound cx
Hyperglycemia:
Likely combination of stress hyperglycemia and prediabetes
- ISS low resistance
- HbA1c 6.4
Atopic dermatitis
- Hold immunosuppressives while infected
Vascular disease:
- Obtain records from PCP/derm
DVT ppx: Lovenox
Code status: Full Code
POA: Lilli Kenney ([phone])
Anticipated Discharge: Today
Subjective/Interval History
-
Date of Service: December 29, 2023
Symptoms have improved
Objective Data
-
Vital Signs:
Vital Signs
Temp Pulse Resp BP Pulse Ox
97.9 F 82 16 146/89 96
12/29/23 19:39 12/29/23 19:39 12/29/23 19:39 12/29/23 19:39 12/29/23 19:39
I&O
12/28/23 12/29/23 12/30/23
06:59 06:59 06:59
Intake Total 755 / 755 1185 / 1185 755 / 755
Output Total 350 / 350
Balance 755 / 755 835 / 835 755 / 755
Review of Systems
-
History Source: Patient
Constitutional: Reports Fever
Respiratory: Reports No Symptoms; Denies Cough or Trouble Breathing
Cardiac: Reports No Symptoms; Denies Chest Pain or Palpitations
Abdomen/GI: Reports Constipated; Denies Abdominal Pain or Nausea
Genitourinary: Reports No Symptoms; Denies Dysuria or Difficulty Voiding
Skin: Reports Rash (pain, pressure in right leg)
Neuro: Reports Headache; Denies Dizzy
Physical Exam
-
General: Well Developed, Well Nourished and Comfortable; Negative Fever
HEENT: Moist Mucous Membranes; Negative Anicteric
Respiratory: Clear to Auscultation and Non Labored Respirations; Negative Wheezes, Rales, Rhonchi, Crackles or Accessory Resp Muscle Use
Cardiac: Regular Rhythm and S1/S2; Negative Murmur, Rub, Calf Tenderness or Kaz's Sign
GI: Soft, Nontender and Nondistended
Musculoskeletal: No Clubbing, No Cyanosis, Edema, Right Lower Extrem and Other (chronic foot ulcers in both feet)
Skin: Warm, Dry (minor clear yellow discharge from skin of right leg) and Rash (redness, swelling, skin sloughing, warmth in RLE)
Neuro: Awake, Alert and Oriented
Psych: Calm
== END 2023-12-29 20:03 | disposition home or self-care (01) | DRG 872 ==
LOC: 3 WEST ACU 18:17
PROVIDERS: Physician Assistant; Student in an Organized Health Care Education/Training Program; ADMITTING PHYSICIAN Family Medicine; CONSULT PHYSICIAN Podiatrist Foot & Ankle Surgery; EMERGENCY PHYSICIAN Emergency Medicine; FAMILY PHYSICIAN Family Medicine
DX: A41.9 Sepsis, unspecified organism (principal); L97.319 Non-pressure chronic ulcer of right ankle with unspecified severity; L03.115 Cellulitis of right lower limb; D84.821 Immunodeficiency due to drugs; E87.1 Hypo-osmolality and hyponatremia; L97.329 Non-pressure chronic ulcer of left ankle with unspecified severity; L20.89 Other atopic dermatitis; R73.03 Prediabetes; M54.9 Dorsalgia, unspecified; I73.9 Peripheral vascular disease, unspecified; R73.9 Hyperglycemia, unspecified; Z79.621 Long term (current) use of calcineurin inhibitor; Z79.69 Long term (current) use of other immunomodulators and immunosuppressants; Z87.891 Personal history of nicotine dependence; Z80.6 Family history of leukemia; Z80.1 Family history of malignant neoplasm of trachea, bronchus and lung; Z88.1 Allergy status to other antibiotic agents
CPT/HCPCS: 73701; 80048; 80053; 81003; 82550; 82962; 83036; 83605; 85025; 85027; 86140; 87040; 87070; 87147; 87205; 93971; 96361; 96365; 96366; 96372; 96375; 99285; Q9967